=== PATIENT | male | born 1955 | race Caucasian/White ===

== ENCOUNTER 2025-01-14 09:22 | Outpatient (CLI) | payer MEDICARE, MEDICAID ==
--- NOTE | 2025-01-14 11:09 | RADIOLOGY REPORT ---
Exam: CT CT ABDOMEN PELVIS History: HEMATURIA Comparison Study: None Technique: Multidetector spiral CT of the abdomen and pelvis was performed from lung bases to pubic symphysis. Imaging was performed without IV contrast. Axial, coronal and sagittal multiplanar reform ats were obtained from the axial data set by the technologist. Radiation dose : Abdomen/Pelvis: CTDIvol 34 mGy, DLP 1938 mGy*cm. Findings: Evaluation of solid organs is limited due to lack of intravenous contrast use. Lung Bases: No acute or significant lung base finding. Normal heart size. No pleural or pericardial effusion. Liver: The liver is normal in size. No focal lesions. Gallbladder and biliary Tree: Unremarkable Spleen: Unremarkable Pancreas: The pancreas is grossly normal in appearance. Adrenal Glands: Unremarkable Kidneys: Right renal cyst. No hydronephrosis or nephrolithiasis. Bladder: Grossly unremarkable for degree of distention. Bowel: The stomach is grossly normal in appearance. Small bowel and colon are normal in caliber and d istribution. The appendix is not visualized; however, no secondary findings of acute appendicitis nelsy ntified. Ascites: Absent Lymphadenopathy: Shotty retroperitoneal lymphadenopathy. Abdominal wall and Mesentery: Mild stranding along the left pelvic sidewall. Postsurgical changes in the anterior left abdominal wall. Small fat containing right inguinal hernia. Vasculature: The visualized abdominal aorta is normal in size and caliber. Evaluation of abdominal a nd pelvic vessels is limited due to lack of intravenous contrast. Pelvic Organs: Prostate is enlarged. Musculoskeletal: Degenerative and postsurgical changes in the spine. IMPRESSION: 1. No acute abdominal or pelvic findings. No hydronephrosis or nephrolithiasis. Right renal cyst. Mar ked prostatomegaly. Shotty retroperitoneal lymphadenopathy. Mild stranding along the left pelvic adri e wall is nonspecific but could be postsurgical. Small fat containing right inguinal hernia. Radiation optimization: All CT scans at this facility use at least one of these dose optimization cira hniques: Automated exposure control mA and/or kV adjustment per patient size (includes targeted exams where dose is matched to clinical indication) or iterative reconstruction. HS:Y
== END 2025-01-14 23:59 | disposition home or self-care (01) ==
LOC: RAD 09:22
PROVIDERS: ATTEND Family Medicine
DX: N28.1 Cyst of kidney, acquired (principal); R31.9 Hematuria, unspecified; R59.0 Localized enlarged lymph nodes
CPT/HCPCS: 74176